=== PATIENT | male | born 1950 | race Caucasian/White ===

== ENCOUNTER 2021-10-16 21:00 | Emergency (ER) | payer MEDICARE ==
[~2021-10-16] VITALS: Ht 182.9 cm; Wt 131.5 kg
[~2021-10-16 21:00] MED LIST: ALTACE 1.25 M1.25 M1 PO; CIPROFLOXACIN500 M1 PO; COUMADIN 5 MG TA5 M1 PO; DIURETIC; ENOXAPARIN150 MG/11 SUBQ; FLOMAX0.4 MG PO; FUROSEMIDE 40 M40 M1 PO; HYDROCODONE-APA1 TA1 PO; KLOR-CON
[2021-10-16 21:44] LABS: URINE BILIRUBIN NEGATIVE (Negative); URINE BLOOD 3+ (Negative); URINE CLARITY SL CLOUDY; URINE COLOR YELLOW; URINE GLUCOSE-RANDOM NEGATIVE (Negative); URINE KETONES NEGATIVE (Negative); URINE LEUKOCYTES-REFLEX NEGATIVE (Negative); URINE NITRITE-REFLEX NEGATIVE (Negative); URINE PROTEIN NEGATIVE (Negative); URINE SPECIFIC GRAVITY >= 1.030 (1.005-1.030); URINE UROBILINOGEN 0.2 E.U./dl (0.2-1.0)
[2021-10-16 21:50] LABS: MUCUS None Seen strn/LPF (None Seen); SQUAMOUS >10 Many /LPF (0-3); URINE RBC >20 Many /HPF (0-2)
[2021-10-16 21:51] LABS: BACTERIA-REFLEX None Seen /HPF (None Seen); CASTS None Seen /LPF (None Seen); CRYSTALS None Seen /LPF (None Seen); URINE WBC-REFLEX None Seen /HPF (0-5)
[2021-10-16 21:55] LABS: ABSOLUTE BASOPHILS 0.1 thou/uL (0.0-0.2); ABSOLUTE EOSINOPHILS 0.1 thou/uL (0.0-0.7); ABSOLUTE LYMPHOCYTES 2.2 thou/uL (0.8-5.3); ABSOLUTE MONOCYTES 0.9 thou/uL (0.0-1.2); BASOPHILS 0.9 %; EOSINOPHILS 1.3 %; HEMATOCRIT 43.2 % (42.0-52.0); MCH 27.8 pg (26.0-34.0); MCHC 32.5 g/dL (28.0-37.0); MCV 85.6 fL (80.0-100.0); MONOCYTES 10.9 %; MPV 7.9 fl. (7.2-11.1); NUCLEATED RBCS 0 /100WBC; PLATELET COUNT* 214 thou/uL (150-400); POLYS 59.9 %; RBC 5.05 mil/uL (4.50-6.00); RDW-CV 15.5 % (10.5-14.5); WBC 8.3 thou/uL (4.0-11.0)
[2021-10-16 21:59] LABS: CALCIUM 7.9 mg/dL (8.5-10.1); CREATININE 1.3 mg/dL (0.6-1.3); POTASSIUM 3.6 mmol/L (3.5-5.1)
[2021-10-16 22:04] LABS: ALBUMIN 3.3 g/dL (3.4-5.0); TOTAL BILIRUBIN 0.4 mg/dL (<0.1-1.0)
[2021-10-16 23:49] VITALS: BP 178/87
== END 2021-10-16 23:50 | disposition home or self-care (01) ==
LOC: M.ERS 21:00
PROVIDERS: Personal Emergency Response Attendant
DX: R31.9 Hematuria, unspecified (principal); R35.0 Frequency of micturition; R19.7 Diarrhea, unspecified; Z98.890 Other specified postprocedural states; Z79.2 Long term (current) use of antibiotics; Z79.899 Other long term (current) drug therapy